=== PATIENT | female | born 1980 ===

== ENCOUNTER 2021-07-09 08:53 | Emergency (ER) | payer OTHER ==
--- OUTSIDE RECORDS SUMMARY | 2021-07-09 08:55 | XMS REPORT | Continuity of Care Document ---
:1980 Author Organization [facility] t Address [address] [place] [address] Care Team Providers Name Role Phone MD LIZETH Attending Clinician Unavailable LIZETH Attending Clinician Unavailable BALAJI Attending Clinician Unavailable Attending Clinician Unavailable MD KINGS Attending Clinician Unavailable MARK ANTHONY Attending Clinician Unavailable MD MARK ANTHONY Attending Clinician Unavailable TY, TELEPHONE AD TAKER LENORA Admitting Clinician Unavailable KINGS Admitting Clinician Unavailable MD KINGS Admitting Clinician Unavailable DEISI Admitting Clinician Unavailable MD JAYSHREE LIPSCOMB Admitting Clinician Unavailable Problems This patient has no known problems. Allergies, Adverse Reactions, Alerts This patient has no known allergies or adverse reactions. Medications This patient has no known medications. Procedures This patient has no known procedures. Encounters Start End Encounter Admission Attending Care Care Encounter Source Date/Time Date/Time Type Type Clinicians Facility Department ID 2020-04-22 2020-04-22 Emergency LIZETH [facility] [id number] [place] 00:00:00 00:00:00 DAYAN [address] 2020-03-01 2020-03-01 Outpatient BALAJI, [facility] [id number] [place] 00:00:00 00:00:00 AUTUMN [address] 2020-03-01 2020-03-01 Outpatient BALAJI, [facility] [id number] [place] 00:00:00 00:00:00 AUTUMN [address] 2020-02-08 2020-02-08 Outpatient BALAJI, [facility] [id number] [place] 00:00:00 00:00:00 AUTUNM [address] 2020-02-08 2020-02-08 Outpatient BALAJI, [facility] [id number] [place] 00:00:00 00:00:00 AUTUMN [address] 2019-12-15 2019-12-15 Outpatient BALAJI, [facility] [id number] [place] 00:00:00 00:00:00 AUTUMN [address] 2019-12-15 2019-12-15 Outpatient BALAJI, [facility] [id number] [place] 00:00:00 00:00:00 AUTUMN [address] 2019-11-28 2019-11-28 Outpatient BALAJI, [facility] [id number] [place] 00:00:00 00:00:00 AUTUMN [address] 2019-11-06 2019-11-09 Inpatient SHIRLEY, [facility] 021 [id number] [place] 00:00:00 00:00:00 SIDRAH [address] 2019-11-04 2019-11-05 Outpatient BUTT, [facility] [id number] [place] 00:00:00 00:00:[address] DAHLIA [address] Results Test Description Test Time Test Comments Results Result Comments Source SARS-CoV-2 (COVID-19) RNA [Presence] in Respiratory sp ecimen by 2020-04-23 02:08:41 IRAM with probe detection Test Item Value Reference Range Interpretation Comme nts SARS-CoV-2 (COVID-19) RNA [Presence] in Respiratory Not detected No t-Detected specimen by IRAM with probe detection (test code = 55553-3) SARS-CoV-2 (COVID-19) RNA [Presence] in Respiratory specimen by IRAM with probe [id number] 06:46:48 Test Item Value Reference Range Interpretation Comments SARS-CoV-2 (COVID-19) RNA Not detected Not-Detected [Presence] in Respiratory specimen by IRAM with probe detection (test code = 70689-3) SARS-CoV-2 (COVID-19) RNA [Presence] in Respiratory specimen by IRAM with probe [id number] 00:46:57 Test Item Value Reference Range Interpretation Comments SARS-CoV-2 (COVID-19) RNA Not detected Not-Detected [Presence] in Respiratory specimen by IRAM with probe detection (test code = 40926-5)
[2021-07-09] MEDS ORDERED: NA CHLORIDE 0.9% 1,000 ML ONE (10:12)
[2021-07-09 10:13] LABS: Absolute Lymphocytes (CBC) 2.5 K/uL (0.7-4.9); Hematocrit 39.2 % (36.0-45.0); Lymphocytes % 39.5 % (15.3-44.8); MPV 7.5 fL (7.6-11.3); RBC Red Blood Cell Count 4.74 M/uL (3.86-4.86)
[2021-07-09 10:15] LABS: Urine Blood 3+ (Negative); Urine Glucose Negative (Negative); Urine Protein Negative (Negative); Urine Specific Gravity 1.015 (1.005-1.030)
[2021-07-09 10:31] LABS: BUN Blood Urea Nitrogen 12 mg/dL (7-18); Bicarbonate 22 mmol/L (21-32); Glucose Level 89 mg/dL (74-106); HCG, Quantitative 43 mIU/mL (1-3); Potassium 4.3 mmol/L (3.5-5.1); Sodium Level 139 mmol/L (136-145)
[2021-07-09 10:37] LABS: Urine Specific Gravity/Preg 1.015 (1.005-1.030)
--- NOTE | 2021-07-09 10:43 | EDPHYS ---
Physician Documentation [facility] Name: Jordyn Dhaliwal Age: 40 yrs Sex: Female : 1980 Arrival Date: 07/09/2021 Time: 08:54 Bed 12 Private MD: ED Physician Benito Ren HPI: 07/09 10:17 This 40 yrs old Female presents to ER via Ambulatory with complaints of amparo Vaginal Bleeding, + Preg <12wks, Pelvic Pain. 10:17 The patient presents to the emergency department with vaginal bleeding. The estimated [facility] gestational age is 6 weeks. course: care: private OB physician. Previous pregnancies: in previous pregnancies patient has had vaginal delivery. Associated signs and symptoms: The patient has no apparent associated signs or symptoms. The patient has not experienced similar symptoms in the past. 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 - Social history:: Smoking status: Patient denies any tobacco usage or history of. ROS: 10:18 Constitutional: Negative for fever, chills, and weight loss, Eyes: Negative for injury, amparo pain, redness, and discharge, ENT: Negative for injury, pain, and discharge, Neck: Negative for injury, pain, and swelling, Cardiovascular: Negative for chest pain, palpitations, and edema, Respiratory: Negative for shortness of breath, cough, wheezing, and pleuritic chest pain, Abdomen/GI: Negative for abdominal pain, nausea, vomiting, diarrhea, and constipation, Back: Negative for injury and pain, MS/Extremity: Negative for injury and deformity, Skin: Negative for injury, rash, and discoloration, Neuro: Negative for headache, weakness, numbness, tingling, and seizure, Psych: Negative for depression, anxiety, suicide ideation, homicidal ideation, and hallucinations, Allergy/Immunology: Negative for hives, rash, and allergies, Endocrine: Negative for neck swelling, polydipsia, polyuria, polyphagia, and marked weight changes, Hematologic/Lymphatic: Negative for swollen nodes, abnormal bleeding, and unusual bruising. 10:18 : Positive for pelvic pain, vaginal bleeding. Exam: 10:18 Constitutional: This is a well developed, well nourished patient who is awake, alert, amparo and in no acute distress. Head/Face: Normocephalic, atraumatic. Eyes: Pupils equal round and reactive to light, extra-ocular motions intact. Lids and lashes normal. Conjunctiva and sclera are non-icteric and not injected. Cornea within normal limits. Periorbital areas with no swelling, redness, or edema. ENT: Nares patent. No nasal discharge, no septal abnormalities noted. Tympanic membranes are normal and external auditory canals are clear. Oropharynx with no redness, swelling, or masses, exudates, or evidence of obstruction, uvula midline. Mucous membranes moist. Neck: Trachea midline, no thyromegaly or masses palpated, and no cervical lymphadenopathy. Supple, full range of motion without nuchal rigidity, or vertebral point tenderness. No Meningismus. Chest/axilla: Normal chest wall appearance and motion. Nontender with no deformity. No lesions are appreciated. Cardiovascular: Regular rate and rhythm with a normal S1 and S2. No gallops, murmurs, or rubs. Normal PMI, no JVD. No pulse deficits. Respiratory: Lungs have equal breath sounds bilaterally, clear to auscultation and percussion. No rales, rhonchi or wheezes noted. No increased work of breathing, no retractions or nasal flaring. Abdomen/GI: Soft, non-tender, with normal bowel sounds. No distension or tympany. No guarding or rebound. No evidence of tenderness throughout. Back: No spinal tenderness. No costovertebral tenderness. Full range of motion. Skin: Warm, dry with normal turgor. Normal color with no rashes, no lesions, and no evidence of cellulitis. MS/ Extremity: Pulses equal, no cyanosis. Neurovascular intact. Full, normal range of motion. Neuro: Awake and alert, GCS 15, oriented to person, place, time, and situation. Cranial nerves II-XII grossly intact. Motor strength 5/5 in all extremities. Sensory grossly intact. Cerebellar exam normal. Normal gait. Psych: Awake, alert, with orientation to person, place and time. Behavior, mood, and affect are within normal limits. Vital Signs: 09:23 BP 144 / 76; Pulse 75; Resp 16; Temp 97.8; Pulse Ox 100% ; Weight 89.81 kg; Height 5 vg1 ft. 5 in. (165.10 cm); Pain 7/10; 09:23 Body Mass Index 32.95 (89.81 kg, 165.10 cm) vg1 MDM: 09:31 Patient medically screened. [facility] 10:22 Differential diagnosis: dysmenorrhea, ectopic . Data reviewed: vital signs, [facility] nurses notes, lab test result(s), radiologic studies, ultrasound. Data interpreted: pc support specialist: rate is 75 beats/min, rhythm is regular, Pulse oximetry: on room air is 100 %. Test interpretation: by ED physician or midlevel provider:. Counseling: I had a detailed discussion with the patient and/or guardian regarding: the historical points, exam findings, and any diagnostic results supporting the discharge/admit diagnosis, lab results, radiology results, the need for outpatient follow up, for definitive care, an OB/Gyne specialist. 07/09 09:32 Order name: Abo/rh Typing; Complete Time: 12:32 [facility] 07/09 09:32 Order name: Basic Metabolic Panel; Complete Time: 10:41 amparo 07/09 09:32 Order name: CBC with Diff; Complete Time: 10:41 [facility] 07/09 09:32 Order name: Quantitative Hcg; Complete Time: 10:41 [facility] 07/09 10:16 Order name: Urine --Ancillary (enter results); Complete Time: 10:41 bd 07/09 10:16 Order name: Urine Dipstick-Ancillary; Complete Time: 10:41 EDDC 07/09 09:32 Order name: IV Saline Lock; Complete Time: 10:05 [facility] 07/09 09:32 Order name: Labs collected and sent; Complete Time: 10:05 [facility] 07/09 09:32 Order name: NPO; Complete Time: 10:05 [facility] 07/09 09:32 Order name: Urine Dipstick-Ancillary (obtain specimen); Complete Time: 10:57 [facility] 07/09 09:32 Order name: Urine Test (obtain specimen); Complete Time: 10:57 [place] 07/09 09:32 Order name: US Transvaginal Ob; Complete Time: 12:32 amparo Administered Medications: 10:10 Drug: NS 0.9% 1000 ml Route: IV; Rate: 1 bolus; Site: left forearm; aa5 12:40 Follow up: IV Status: Completed infusion; IV Intake: 1000ml vg1 Disposition Summary: 07/09/21 10:42 Discharge Ordered Location: Home amparo Problem: new amparo Symptoms: have improved amparo Condition: Stable amparo Diagnosis - Threatened amparo Followup: amparo - With: Private Physician - When: 2 - 3 days - Reason: Recheck today's complaints, Continuance of care, Re-evaluation by your physician Discharge Instructions: - Discharge Summary Sheet amparo - Care amparo - Threatened Miscarriage amparo - Vaginal Bleeding During , First Trimester amparo - Threatened Miscarriage, Poyk-ok-Irge amparo - Vaginal Bleeding During , First Trimester, [id number] amparo Forms: - Medication Reconciliation Form amparo - Thank You Letter amparo - Antibiotic Education amparo - Prescription Opioid Use amparo Signatures: Dispatcher [employer] Benito Colbert MD MD cha Calderon, Audri, RN RN aa5 Ida Roberson RN RN vg1
--- NOTE | 2021-07-09 10:43 | ER ---
Nurse's Notes [facility] Name: Jordyn Dhaliwal Age: 40 yrs Sex: Female : 1980 Arrival Date: 07/09/2021 Time: 08:54 Bed 12 Private MD: Diagnosis: Threatened Presentation: 07/09 09:23 Chief complaint: Patient states: Vaginal bleeding began yesterday, states bright to vg1 dark red with clots the size of a quarter; also states nausea. Coronavirus screen: Vaccine status: Patient reports being unvaccinated. Client denies travel out of the [place] in the last 14 days. Ebola Screen: Patient negative for fever greater than or equal to 101.5 degrees Fahrenheit, and additional compatible Ebola Virus Disease symptoms. Initial Sepsis Screen: Does the patient meet any 2 criteria? No. Patient's initial sepsis screen is negative. Does the patient have a suspected source of infection? No. Patient's initial sepsis screen is negative. Risk Assessment: Do you want to hurt yourself or someone else? Patient reports no desire to harm self or others. Onset of symptoms was July 08, 2021. 09:23 Method Of Arrival: Ambulatory vg1 09:23 Acuity: AYO 3 vg1 Triage Assessment: 09:24 General: Appears in no apparent distress. comfortable, Behavior is calm, cooperative. vg1 General: Appears uncomfortable, Behavior is. Pain: Complains of pain in pelvis. : Reports vaginal bleeding that is bright red, with clots, moderate flow. 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 - Social history:: Smoking status: Patient denies any tobacco usage or history of. Screenin:55 Abuse screen: Denies threats or abuse. Nutritional screening: No deficits noted. aa5 Tuberculosis screening: No symptoms or risk factors identified. Fall Risk None identified. Assessment: 09:45 General: Appears comfortable, Behavior is calm, cooperative, Reports positive aa5 test approximately 4-5 days ago. Pain: Complains of pain in right lower quadrant and left lower quadrant Pain currently is 7 out of 10 on a pain scale. Quality of pain is described as crampy, Pain began 1 day ago. Is intermittent. Neuro: Level of Consciousness is awake, alert, obeys commands, Oriented to person, place, time, situation. Cardiovascular: Heart tones S1 S2 present Rhythm is regular. Respiratory: Airway is patent Respiratory effort is even, unlabored, Respiratory pattern is regular, symmetrical. GI: Abdomen is round non-distended, Abd is soft and non tender X 4 quads. : Reports vaginal bleeding that is bright red, with clots, moderate flow. EENT: No signs and/or symptoms were reported regarding the EENT system. Derm: Skin is pink, warm \T\ dry. Musculoskeletal: Range of motion: intact in all extremities. 10:20 Reassessment: Pt to US. aa5 11:20 Reassessment: Pt back from US. aa5 11:27 Reassessment: Patient is alert, oriented x 3, equal unlabored respirations, skin aa5 warm/dry/pink. Pending US results for d/c home. Vital Signs: 09:23 BP 144 / 76; Pulse 75; Resp 16; Temp 97.8; Pulse Ox 100% ; Weight 89.81 kg; Height 5 vg1 ft. 5 in. (165.10 cm); Pain 7/10; 09:23 Body Mass Index 32.95 (89.81 kg, 165.10 cm) vg1 ED Course: 08:54 Patient arrived in ED. as 09:24 Triage completed. vg1 09:24 Arm band placed on. vg1 09:31 Benito Ren MD is Attending Physician. [facility] 09:45 Patient has correct armband on for positive identification. Bed in low position. Call aa5 light in reach. Side rails up X2. Adult w/ patient. 09:55 Initial lab(s) drawn, by ar, sent to lab. Inserted saline lock: 24 gauge in left aa5 forearm, using aseptic technique. Blood collected. 10:05 Deepthi Orta, RN is Primary Nurse. aa5 10:59 Transvaginal Ob In Process Unspecified. EDMS 12:41 No provider procedures requiring assistance completed. IV discontinued, intact, vg1 bleeding controlled, No redness/swelling at site. Pressure dressing applied. Administered Medications: 10:10 Drug: NS 0.9% 1000 ml Route: IV; Rate: 1 bolus; Site: left forearm; aa5 12:40 Follow up: IV Status: Completed infusion; IV Intake: 1000ml vg1 Intake: 12:40 IV: 1000ml; Total: 1000ml. vg1 Outcome: 10:42 Discharge ordered by . amparo 12:40 Discharged to home ambulatory, with family. vg1 12:40 Condition: good 12:40 Discharge instructions given to patient, Instructed on discharge instructions, follow up and referral plans. Demonstrated understanding of instructions, follow-up care. 12:41 Patient left the ED. vg1 Signatures: Dispatcher [employer] EDAZ Benito Ren MD MD cha Martinez, Amelia as Calderon, Audri, RN RN aa5 Ida Roberson RN RN vg1
--- NOTE | 2021-07-09 11:53 | RAD REPORT ---
EXAM DESCRIPTION: US - Transvaginal OB - 07/09/2021 11:08 am CLINICAL HISTORY: ABD CRAMPING, COMPARISON: No comparisons FINDINGS: No normal IUP identified. The uterus measures 8.5 cm. The endometrium measures 6 millimete rs. Right ovary is volume of 4.1 cc. The left ovary is volume of 7.7 cc. Bilateral ovarian blood flow is present. No free fluid. IMPRESSION: No normal IUP identified. Therefore, cannot exclude early normal IUP, early ectopic, or failed first trimester . Bilateral ovarian blood flow present.
[2021-07-09 16:41] VITALS: BP 144/76; TEMP 97.8; O2SAT 100
== END 2021-07-09 12:41 | disposition home or self-care (01) ==
LOC: ER 08:53
DX: O20.0 Threatened abortion (principal); E03.9 Hypothyroidism, unspecified; Z88.0 Allergy status to penicillin; Z88.8 Allergy status to other drugs, medicaments and biological substances; Z91.013 Allergy to seafood
CPT/HCPCS: 96361; 85025; 80048; 36415; 86900; 81025; 86901; 84702; 81003; 76817; 96360; 99284; J7030